=== PATIENT | female | born 1985 | race Caucasian/White ===

== ENCOUNTER 2018-08-14 04:05 | Inpatient (IN) | payer OTHER ==
[2018-08-14 05:20] LABS: BASO % 0.6 % (0-2.0); EOS % 0.3 % (0-4.5); HEMATOCRIT 36.7 % (32.4-45.2); HEMOGLOBIN 12.7 GM/dL (10.7-15.3); LYMPH % 11.4 % (8-40); MCH 30.5 pg (25.7-33.7); MCHC 34.5 g/dl (32.0-36.0); MEAN CELL VOLUME 88.4 fl (80-96); MEAN PLT VOLUME 11.8 fl (7.5-11.1); NEUT % 85.7 % (42.8-82.8); PLATELET COUNT 88 K/MM3 (134-434); RBC 4.15 M/mm3 (3.60-5.2); RDW 14.1 % (11.6-15.6)
[2018-08-14] MEDS ORDERED: FENTANYL/BUPIVACAINE/NS/PF - PCEA - 50 ML DISP.SYRIN EP ONE (05:20)
[2018-08-14] MEDS ORDERED: BUPIVACAINE HCL/PF 0.25% (2.5MG/ML) 10 ML VIAL ONE (05:22)
[2018-08-14] MEDS ORDERED: LIDO 2%/EPI 1:200000 PRESRVFRE (20 ML SDVIAL) ONE ×2 (05:22→07:11)
--- NOTE | 2018-08-14 05:31 | HP ---
Past Medical History - Primary Care Physician PCP:: Marialuisa Ramirez - Admission Chief Complaint: 33yo P1 @ 40.4 with spontaneous contructions, no VB, no LOF, + FM History of Present Illness: 1. 08/01/14 c/s Chorioamnionitis at 8cm baby was 8lb8oz 2. GCT 89 3. GBS neg History Source: Patient, Medical Record Limitations to Obtaining History: No Limitations - Past Medical History Pulmonary: Yes: Asthma (as a child) ...: 2 ...Para: 1 ...Term: 1 ...EDC by Dates: 08/12/18 ...EDC by Sono: 08/10/18 - Past Surgical History Past Surgical History: Yes: Hx Myomectomy: No Hx Transabdominal Cerclage: No - Smoking History Smoking history: Never smoked Have you smoked in the past 12 months: No - Alcohol/Substance Use Hx Alcohol Use: No - Social History Usual Living Arrangement: Yes: With Spouse History of Recent Travel: No Home Medications - Allergies Allergies/Adverse Reactions: Allergies Allergy/AdvReac Type Severity Reaction Status Date / Time No Known Allergies Allergy Verified 08/06/18 11:56 - Home Medications Home Medications: Ambulatory Orders L.acidoph,Paracasei, B.lactis [Probiotic] 1 tab PO DAILY 08/06/18 Tablet 1 mg PO DAILY 08/06/18 Review of Systems - Review of Systems Constitutional: reports: No Symptoms Eyes: reports: No Symptoms HENT: reports: No Symptoms Neck: reports: No Symptoms Cardiovascular: reports: No Symptoms Respiratory: reports: No Symptoms Gastrointestinal: reports: No Symptoms Genitourinary: reports: No Symptoms Breasts: reports: No Symptoms Reported Musculoskeletal: reports: No Symptoms Integumentary: reports: No Symptoms Neurological: reports: No Symptoms Endocrine: reports: No Symptoms Hematology/Lymphatic: reports: No Symptoms Psychiatric: reports: No Symptoms Physical Exam - Maternity Constitutional: Yes: Well Nourished, Other (very uncomfortable with contructions ) Eyes: Yes: WNL, Conjunctiva Clear HENT: Yes: WNL Neck: Yes: WNL, Supple, Trachea Midline Cardiovascular: Yes: WNL, Regular Rate and Rhythm Lungs: Clear to auscultation Breast(s): Yes: WNL - Abdominal Exam/OB Fundal Height: 40 Number of Fetuses: Single Presentation: Vertex Contractions: Yes Regularity: Regular (Q 2min) Intensity: Moderate Monitor Mode: External Heart Rate (range): 160 Heart Rate Location: Midline Category: I Accelerations: Uniform Decelerations: None - Vaginal Exam/OB Vaginal Bleediing: No Speculum Exam: No Dilatation (cm): 6 Effacement (%): 100 Amniotic Membrane Status: Bulging Presentation: Vertex/Position Station: -3 - Physical Exam Musculoskeletal: Yes: WNL Extremities: Yes: WNL Edema: No Integumentary: Yes: WNL Deep Tendon Reflex Grade: Normal +2 ...Motor Strength: WNL Psychiatric: Yes: WNL, Alert, Oriented - Labs Lab Results: Opos/RPR nr/HBAgneg/HIV neg/ RI/GBS neg Assessment/Plan 33yo P1 @ 40.4wks in active labor, very uncomfortable Admit to L&D, IVF, NPO, Labs prior c/section, desires TOLAC she understands risk of the uterine rupture at 1% EFW ~ 8lb, gynecoid pelvis anesthesia contacted for epidural placement
[2018-08-14 05:37] LABS: INR 0.95 (0.83-1.09); PROTHROMBIN TIME (PATIENT) 11.2 SEC (9.7-13.0)
[2018-08-14 05:40] LABS: ACTIVATED PTT 27.9 SECONDS (25.2-36.5)
[2018-08-14 05:45] LABS: ANION GAP 13 MMOL/L (8-16); BLOOD UREA NITROGEN 7 mg/dL (7-18); CALCIUM 7.7 mg/dL (8.5-10.1); CHLORIDE 106 mmol/L (98-107); CO2 19 mmol/L (21-32); CREATININE 0.6 mg/dL (0.55-1.3); GLUCOSE,RANDOM 181 mg/dL (74-106); POTASSIUM 3.4 mmol/L (3.5-5.1); SODIUM 138 mmol/L (136-145)
[2018-08-14] MEDS ORDERED: NALOXONE HCL 0.4 MG/ML VIAL IVPUSH PRN (05:48)
[2018-08-14] MEDS ORDERED: FENTANYL/BUPIVACAINE/NS/PF - PCEA - 50 ML DISP.SYRIN EP SCH (06:00)
[2018-08-14 06:12] VITALS: BMI 28.8
--- NOTE | 2018-08-14 06:12 | PN ---
Progress Note, Labor Vaginal Exam #1 Labor Exam Date: 08/14/18 Labor Exam Time: 05:55 Heart Rate (range): 160' + varriability, category 2 Dilatation: 8cm Effacement (%): 100 Amniotic Membrane Status: Bulging Presentation: Vertex/Position Station: -2 Remarks: As soon as patient is comfortable with anesthesia AROM conducted - thick meconium noted IUPC, FSE and zaman catheters placed Neonatology contacted currently Category 2 FHR, exellent varriability, reassuring Left lateral decubitous position, O2 by face mask will await Neonitalogy presence prior to making decision on mode of delivery
[2018-08-14] MEDS ORDERED: ELECTROLYTE-148 SOLN 1,000 ML IV SCH (06:30)
--- NOTE | 2018-08-14 06:50 | PN ---
Progress Note, Labor Vaginal Exam #2 Labor Exam Date: 08/14/18 Labor Exam Time: 06:50 Heart Rate (range): 165-170 Dilatation: 7-8cm Effacement (%): 100 Amniotic Membrane Status: Ruptured Presentation: Vertex/Position Station: -3 (Thick meconium, no further cervical dialation in 1 hr, FHR Category 2 with some not reassuring features, namely tachycardia, no accelerations Since still remote from delivery will initiate delivery by c/ section Anesthesia and Neonatology aware)
[2018-08-14] MEDS ORDERED: ONDANSETRON 4 MG/2 ML VIAL IVPUSH PRN (07:33)
[2018-08-14] MEDS ORDERED: OXYTOCIN 10 UNITS/ML VIAL ONE (07:57)
[2018-08-14] MEDS ORDERED: ceFAZolin SODIUM 1 GM VIAL ONE (07:57)
[2018-08-14] MEDS ORDERED: diphenhydrAMINE HCL 25 MG CAPSULE (FP) PO PRN (08:51)
[2018-08-14] MEDS ORDERED: BENZOCAINE 28 GM HEMORRHOIDAL OINTMENT PR PRN (08:51)
[2018-08-14] MEDS ORDERED: IBUPROFEN 600 MG TABLET (FP) PO PRN (08:51)
[2018-08-14] MEDS ORDERED: METHYLERGONOVINE MALEATE 0.2 MG/1 ML AMP IM PRN (08:51)
[2018-08-14] MEDS ORDERED: WITCH HAZEL 50% (TUCKS) 40 PAD/JAR PAD TP PRN (08:51)
[2018-08-14] MEDS ORDERED: BENZOCAINE 20% 57 GM BOTTLE TP PRN (08:51)
[2018-08-14] MEDS ORDERED: OXYTOCIN 20 UNITS in 0.9% NS 20 UNIT/1,000 ML INFUS.BAG IV SCH (09:00)
[2018-08-14] MEDS ORDERED: DEXTROSE 5%-LACTATED RINGERS 1,000 ML IV SCH (09:00)
--- NOTE | 2018-08-14 09:00 | PN ---
Delivery - Delivery Section: Repeat Episiotomy/Laceration: None EBL (cc): 400 Delivery, Single - Stages of Labor Date 1st Stage Initiatied: 08/14/18 Time 1st Stage Initiated: 05:30 Date 2nd Stage Initiated: 08/14/18 Date of Delivery: 08/14/18 Time of Delivery: 07:36 Date Placenta Delivered: 08/14/18 Time Placenta Delivered: 07:37 Placenta: Yes: Expressed - Condition of Sound Effects Supervisor/Malt Specifications Control Assistant Present: Yes Name: Zamzam Horton Gender: Female Position: Left, OA - 1 Minute Total Score: 8 5 Minutes Total Score: 9 - [place] Feeding Plan Initial Plan: Exclusive throughout hospitalization Remarks - Remarks Remarks: Attempted TOLAC Thick meconium NRFHR
--- NOTE | 2018-08-14 09:07 | OP ---
Operative Note - Note: Operative Date: 08/14/18 Pre-Operative Diagnosis: 33yo P 1 @ 40.4wks Attempted TOLAC. Thick meconium. Category 2 FHR remote from delivery, no accels, tachicardia, positive varriability Operation: Repeat c/section Findings: 1. Viable female APGARs 8/9 2. Normal Bl Tubes and ovaries Post-Operative Diagnosis: Same as Pre-op Surgeon: Marialuisa Ramirez Grain Scooper: Destini Moser Anesthesiologist/GERMAN INSTRUCTOR: Timur Aguirre Anesthesia: Epidural Estimated Blood Loss (mls): 400 Drains, Volume Out (mls): 100 Fluid Volume Replaced (mls): 1,000 Operative Report Dictated: Yes
[2018-08-14 09:16] LABS: ARTERIAL BLOOD GAS BASE EXCESS -5.5 meq/l (-2-2)
[2018-08-14 09:27] LABS: ARTERIAL BLOOD GAS PCO2 63.1 mmHg (35-45); ARTERIAL BLOOD GAS pH 7.2 (7.35-7.45)
[2018-08-14 09:28] LABS: ARTERIAL BLD GAS O2 SATURATION 15.7 % (90-98.9); ARTERIAL BLOOD GAS PO2 13.4 mmHg (80-100)
[2018-08-14 09:29] LABS: VENOUS PC02 49.4 mmHg (38-52); VENOUS PH 7.27 (7.32-7.42); VENOUS PO2 26.2 mmHg (28-48)
[2018-08-14] MEDS: CEFAZOLIN 1 GM/D5W 1 GM/50 ML BAG IVPB SCH ×2 (10:24→18:13)
[2018-08-14] MEDS ORDERED: IBUPROFEN 800 MG/8 ML IJ IVPB ONE (10:31)
[2018-08-14] MEDS: IBUPROFEN 800 MG/8 ML IJ IVPB PRN ×2 (10:35→16:59)
[2018-08-14] MEDS ORDERED: OXYTOCIN 20 UNITS in 0.9% NS 20 UNIT/1,000 ML INFUS.BAG IV ONE (11:29)
[2018-08-14] MEDS: SIMETHICONE 80 MG TAB.CHEW (FP) PO PRN (21:44)
[2018-08-15] MEDS: IBUPROFEN 800 MG/8 ML IJ IVPB PRN (00:47)
[2018-08-15] MEDS ORDERED: CEFAZOLIN 1 GM/D5W 1 GM/50 ML BAG IVPB ONE (02:00)
[2018-08-15] MEDS: SIMETHICONE 80 MG TAB.CHEW (FP) PO PRN ×5 (06:42→22:06)
[2018-08-15] MEDS: IBUPROFEN 600 MG TABLET (FP) PO PRN ×5 (06:42→22:06)
[2018-08-15] MEDS: ACETAMINOPHEN 325 MG TABLET (FP) PO PRN ×4 (06:43→18:10)
--- NOTE | 2018-08-15 08:12 | PN ---
Progress Note (short form) - Note Progress Note: Anesthesia Post op/pain Pt seen and examined S:Alert and awake comfortable O: Vital Signs Temperature 98.1 F 08/15/18 06:00 Pulse Rate 74 08/15/18 06:00 Respiratory Rate 20 08/15/18 06:00 Blood Pressure 118/70 08/15/18 06:00 O2 Sat by Pulse Oximetry (%) 98 08/14/18 09:25 CBC, BMP 08/14/18 05:05 A/P: c section s/p Doing well post op Continue current care Timur Aguirre MD
[2018-08-15 08:15] LABS: BASO % 0.4 % (0-2.0); EOS % 0.1 % (0-4.5); HEMATOCRIT 33.9 % (32.4-45.2); HEMOGLOBIN 11.6 GM/dL (10.7-15.3); LYMPH % 10.4 % (8-40); MCH 30.6 pg (25.7-33.7); MCHC 34.2 g/dl (32.0-36.0); MEAN CELL VOLUME 89.6 fl (80-96); MONO % 3.2 % (3.8-10.2); NEUT % 85.9 % (42.8-82.8); PLATELET COUNT 83 K/MM3 (134-434); RBC 3.79 M/mm3 (3.60-5.2); RDW 14.2 % (11.6-15.6); WHITE BLOOD COUNT 12.5 K/mm3 (4.0-10.0)
[2018-08-15] MEDS ORDERED: BUPIVACAINE HCL/PF 0.25% (2.5MG/ML) 10 ML VIAL ONE (08:26)
[2018-08-15] MEDS ORDERED: BISACODYL 10 MG SUPP.RECT RC PRN (08:52)
--- NOTE | 2018-08-15 09:45 | PN ---
Post Progress Note - Subjective Subjective: Patient without acute complaints. Reports tolerating oral intake without nausea or vomiting. Ambulating without dizziness. Denies fevers or chills. Pain well controlled with oral pain medication. without difficulty. Passing flatus. Post Day: 1 Type of Delivery: Repeat C/S Vital Signs: Vital Signs Temperature 98.1 F 08/15/18 06:00 Pulse Rate 74 08/15/18 06:00 Respiratory Rate 20 08/15/18 06:00 Blood Pressure 118/70 08/15/18 06:00 O2 Sat by Pulse Oximetry (%) 98 08/14/18 09:25 Breast Exam: Yes: Soft Uterus: Yes: Fundus Firm, Fundus @ umbilicus Incision: Yes: Dressing dry and intact Abdomen/GI: Yes: Abdomen soft Lochia: Yes: Rubra Lochia, amount: Small Extremities: Yes: Calves non-tender Perineum: Yes: Intact Activity: Ambulating - Labs Labs: CBC WBC 12.5 K/mm3 (4.0-10.0) H 08/15/18 07:25 RBC 3.79 M/mm3 (3.60-5.2) 08/15/18 07:25 Hgb 11.6 GM/dL (10.7-15.3) 08/15/18 07:25 Hct 33.9 % (32.4-45.2) 08/15/18 07:25 MCV 89.6 fl (80-96) 08/15/18 07:25 MCH 30.6 pg (25.7-33.7) 08/15/18 07:25 MCHC 34.2 g/dl (32.0-36.0) 08/15/18 07:25 RDW 14.2 % (11.6-15.6) 08/15/18 07:25 Plt Count 83 K/MM3 (134-434) L 08/15/18 07:25 MPV 11.0 fl (7.5-11.1) 08/15/18 07:25 Absolute Neuts (auto) 10.7 K/mm3 (1.5-8.0) H 08/15/18 07:25 Neutrophils % 85.9 % (42.8-82.8) H 08/15/18 07:25 Lymphocytes % 10.4 % (8-40) 08/15/18 07:25 Monocytes % 3.2 % (3.8-10.2) L 08/15/18 07:25 Eosinophils % 0.1 % (0-4.5) 08/15/18 07:25 Basophils % 0.4 % (0-2.0) 08/15/18 07:25 Nucleated RBC % 0 % (0-0) 08/15/18 07:25 Assessment/Plan 33yo P 2 now s/p Repeat c/section due to Category 2 FHR remote from delivery VSS, Afebrile Doing well Gestational Thrombocytopenia will continue routine PP care Encourage ambulation
[2018-08-15] MEDS: oxyCODONE HCL 5 MG TABLET PO PRN (22:07)
--- NOTE | 2018-08-15 22:58 | DS ---
Physical Exam-BINDING FOLDER MACHINE Vital Signs: Vital Signs Temperature 98.1 F 08/15/18 22:00 Pulse Rate 77 08/15/18 22:00 Respiratory Rate 20 08/15/18 22:00 Blood Pressure 122/62 08/15/18 22:00 O2 Sat by Pulse Oximetry (%) 98 08/14/18 09:25 Constitutional: Yes: Well Nourished, No Distress, Calm Eyes: Yes: WNL, Conjunctiva Clear, EOM Intact HENT: Yes: WNL, Atraumatic, Normocephalic Neck: Yes: WNL, Supple, Trachea Midline Cardiovascular: Yes: WNL, Regular Rate and Rhythm Respiratory: Yes: WNL, Regular, CTA Bilaterally Gastrointestinal: Yes: WNL, Normal Bowel Sounds, Soft Pelvis: Yes: WNL External Genitalia: Yes: Normal Internal Exam Deferred: Yes ....Post : Yes: Uterus firm, Uterus non-tender, Slight lochia rubra Breast(s): Yes: WNL Musculoskeletal: Yes: WNL Extremities: Yes: WNL Edema: No Integumentary: Yes: WNL Wound/Incision: Yes: Clean/Dry, Well Approximated Neurological: Yes: WNL, Alert, Oriented ...Motor Strength: WNL Psychiatric: Yes: WNL, Alert, Oriented Labs: CBC, BMP 08/15/18 07:25 08/14/18 05:05 Delivery - Delivery Section: Repeat Type of Anesthesia: Epidural Episiotomy/Laceration: None EBL (cc): 400 Delivery, Single - Stages of Labor Date 1st Stage Initiatied: 08/14/18 Time 1st Stage Initiated: 05:30 Date 2nd Stage Initiated: 08/14/18 Date of Delivery: 08/14/18 Time of Delivery: 07:36 Time Placenta Delivered: 07:37 Placenta: Yes: Expressed - Condition of Group Product Manager/Graduate Recruiter Present: Yes Name: Zamzam Horton Infant Gender: Female Weight: 8 lb 14 oz Position: Left, OA Total Hours ROM (Hrs/Mins): 1hr/41mins - 1 Minute Total Score: 8 5 Minutes Total Score: 9 - [place] Feeding Plan Initial Plan: Exclusive throughout hospitalization Remarks - Remarks Remarks: Attempted TOLAC Thick meconium NRFHR Discharge Summary Reason For Visit: LABOR ADMIT Procedures: Principal: Repeat LST c/section Hospital Course: Stable Condition: Good - Instructions Diet, Activity, Other Instructions: Physical activity Resume your normal everyday activity as tolerated no heavy lifting or exercise until seen by your surgeon. You may walk unlimited jane of and climb stairs. You may resume driving the car when you feel safe and comfortable behind the wheel. No sexual activity as instructed. Wound care If you have a bandage, leave it on, and keep dry for 48-72 hours. After that time discard the outer bandage. If they are tapes on the skin under the out of bandage leave them in place. They will peel off in the next 7 to 10 days. Do Not Peel them off. You may shower the day after surgery. If there are tapes present on the skin, you may shower over them. Diet There are no dietary restrictions. Eat healthy, high-fiber foods. Drink 6 to 8 glasses of liquid each day. This will assist in keeping your bowels are regular. Pain management You may take Tylenol or acetaminophen or Ibuprofen (for example, Motrin, Advil etc.) from my pain prescription medication is ordered should be taken as prescribed for moderate to severe pain. Call MD for any of the following: Severe pain not relieved by medication Fever of 101 or higher Excessive bleeding or drainage on dressing Inability to urinate Referrals: Star Helm MD [Staff Physician] - Disposition: HOME - Home Medications Comprehensive Discharge Medication List: Ambulatory Orders Bacillus Coagulans [Probiotic] 1 each PO DAILY 08/14/18 Pnv No.95/Ferrous Fum/Folic AC [ Vitamin Tablet] 1 each PO DAILY
[2018-08-16] MEDS: SIMETHICONE 80 MG TAB.CHEW (FP) PO PRN ×5 (05:44→22:08)
[2018-08-16] MEDS: IBUPROFEN 600 MG TABLET (FP) PO PRN ×5 (05:45→22:10)
[2018-08-16] MEDS: oxyCODONE HCL 5 MG TABLET PO PRN ×3 (05:45→22:09)
--- NOTE | 2018-08-16 09:08 | PN ---
Post Progress Note Post Day: 2 Type of Delivery: Repeat C/S Vital Signs: Vital Signs Temperature 98.1 F 08/15/18 22:00 Pulse Rate 77 08/15/18 22:00 Respiratory Rate 20 08/15/18 22:00 Blood Pressure 122/62 08/15/18 22:00 O2 Sat by Pulse Oximetry (%) 98 08/14/18 09:25 - Labs Labs: CBC WBC 12.5 K/mm3 (4.0-10.0) H 08/15/18 07:25 RBC 3.79 M/mm3 (3.60-5.2) 08/15/18 07:25 Hgb 11.6 GM/dL (10.7-15.3) 08/15/18 07:25 Hct 33.9 % (32.4-45.2) 08/15/18 07:25 MCV 89.6 fl (80-96) 08/15/18 07:25 MCH 30.6 pg (25.7-33.7) 08/15/18 07:25 MCHC 34.2 g/dl (32.0-36.0) 08/15/18 07:25 RDW 14.2 % (11.6-15.6) 08/15/18 07:25 Plt Count 83 K/MM3 (134-434) L 08/15/18 07:25 MPV 11.0 fl (7.5-11.1) 08/15/18 07:25 Absolute Neuts (auto) 10.7 K/mm3 (1.5-8.0) H 08/15/18 07:25 Neutrophils % 85.9 % (42.8-82.8) H 08/15/18 07:25 Lymphocytes % 10.4 % (8-40) 08/15/18 07:25 Monocytes % 3.2 % (3.8-10.2) L 08/15/18 07:25 Eosinophils % 0.1 % (0-4.5) 08/15/18 07:25 Basophils % 0.4 % (0-2.0) 08/15/18 07:25 Nucleated RBC % 0 % (0-0) 08/15/18 07:25
[2018-08-16] MEDS: ACETAMINOPHEN 325 MG TABLET (FP) PO PRN ×3 (09:45→17:01)
[2018-08-16] MEDS: SENNOSIDES/DOCUSATE COMBO (SENNA PLUS) TABLET (UD) PO PRN (22:09)
[2018-08-17] MEDS: oxyCODONE HCL 5 MG TABLET PO PRN (01:56)
[2018-08-17] MEDS: SIMETHICONE 80 MG TAB.CHEW (FP) PO PRN ×6 (01:56→22:16)
[2018-08-17] MEDS: IBUPROFEN 600 MG TABLET (FP) PO PRN ×6 (01:57→22:18)
[2018-08-17] MEDS: ACETAMINOPHEN 325 MG TABLET (FP) PO PRN ×5 (06:03→22:17)
[2018-08-17 07:23] LABS: BASO % 0.7 % (0-2.0); EOS % 2.7 % (0-4.5); HEMATOCRIT 31.9 % (32.4-45.2); HEMOGLOBIN 11.1 GM/dL (10.7-15.3); LYMPH % 29.6 % (8-40); MCH 31.1 pg (25.7-33.7); MCHC 34.6 g/dl (32.0-36.0); MEAN CELL VOLUME 89.9 fl (80-96); MEAN PLT VOLUME 10.7 fl (7.5-11.1); MONO % 6.2 % (3.8-10.2); NEUT % 60.8 % (42.8-82.8); PLATELET COUNT 104 K/MM3 (134-434); RBC 3.55 M/mm3 (3.60-5.2); RDW 14.4 % (11.6-15.6); WHITE BLOOD COUNT 5.9 K/mm3 (4.0-10.0)
--- NOTE | 2018-08-17 17:52 | PN ---
Post Progress Note - Subjective Subjective: Patient without acute complaints. Reports tolerating oral intake without nausea or vomiting. Ambulating without dizziness. Denies fevers or chills. Pain well controlled with oral pain medication. Pumping without issue, baby not latching yet. Post Day: 3 Type of Delivery: Repeat C/S Vital Signs: Vital Signs Temperature 98.4 F 08/17/18 07:40 Pulse Rate 56 L 08/17/18 07:40 Respiratory Rate 18 08/17/18 07:40 Blood Pressure 135/76 08/17/18 07:40 O2 Sat by Pulse Oximetry (%) 98 08/14/18 09:25 Breast Exam: Yes: Soft Uterus: Yes: Fundus Firm, Fundus below umbilicus, Non-tender Incision: Yes: Sutures intact Abdomen/GI: Yes: Abdomen soft, Passing flatus, Tolerating PO Lochia: Yes: Rubra Lochia, amount: Small Extremities: Yes: Calves non-tender Perineum: Yes: Intact Activity: Ambulating - Labs Labs: CBC WBC 5.9 K/mm3 (4.0-10.0) 08/17/18 07:00 RBC 3.55 M/mm3 (3.60-5.2) L 08/17/18 07:00 Hgb 11.1 GM/dL (10.7-15.3) 08/17/18 07:00 Hct 31.9 % (32.4-45.2) L 08/17/18 07:00 MCV 89.9 fl (80-96) 08/17/18 07:00 MCH 31.1 pg (25.7-33.7) 08/17/18 07:00 MCHC 34.6 g/dl (32.0-36.0) 08/17/18 07:00 RDW 14.4 % (11.6-15.6) 08/17/18 07:00 Plt Count 104 K/MM3 (134-434) L D 08/17/18 07:00 MPV 10.7 fl (7.5-11.1) 08/17/18 07:00 Absolute Neuts (auto) 3.6 K/mm3 (1.5-8.0) 08/17/18 07:00 Neutrophils % 60.8 % (42.8-82.8) D 08/17/18 07:00 Lymphocytes % 29.6 % (8-40) D 08/17/18 07:00 Monocytes % 6.2 % (3.8-10.2) D 08/17/18 07:00 Eosinophils % 2.7 % (0-4.5) D 08/17/18 07:00 Basophils % 0.7 % (0-2.0) 08/17/18 07:00 Nucleated RBC % 0 % (0-0) 08/17/18 07:00 Assessment/Plan 33yo P2 s/p repeat LT C/S, doing well stable, afebrile. The pt is asymptomatic for s/sxs of anemia. care instructions reviewed. Continue routine postop care. Ambulation encouraged.
[2018-08-17] MEDS: SENNOSIDES/DOCUSATE COMBO (SENNA PLUS) TABLET (UD) PO PRN (22:16)
[2018-08-18] MEDS: SIMETHICONE 80 MG TAB.CHEW (FP) PO PRN ×3 (02:21→11:52)
[2018-08-18] MEDS: IBUPROFEN 600 MG TABLET (FP) PO PRN ×3 (02:22→11:52)
[2018-08-18] MEDS: ACETAMINOPHEN 325 MG TABLET (FP) PO PRN ×3 (02:24→11:54)
[2018-08-18 10:59] VITALS: BP 128/63; PULSE 53; TEMP 98
--- NOTE | 2018-08-29 14:25 | PATH ---
Surgical Pathology Report Patient Name: ALEXIA MCKENZIE [facility]. Rec. 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 Specimen(s) Received PLACENTA Clinical History , 40.4 weeks Final Diagnosis PLACENTA, SECTION: 502 G THIRD TRIMESTER PLACENTA WITH TRIVASCULAR UMBILICAL CORD AND PLACENTAL MEMBRANES WITH MECONIUM LADEN MACROPHAGES. Electronically Signed Shaniqua Jones M.D. Gross Description The specimen is received fresh labeled placenta and is a 502 gram, 16.0 x 16.0 x 3.2 cm. placenta with attached membranes and umbilical cord. The attached membranes are schneider green, meconium stained, translucent with focal opacities and insert marginally. The umbilical cord measures 8.5 cm. in length and averages 1.3 cm. in diameter. The cord inserts centrally. No true knots or strictures are identified. Cut surface of the umbilical cord reveals 3 vessels. The surface is keller green, meconium stained with minimal fibrin deposition and appropriate caliber vessels. The maternal surface is red-brown with focal defects. Sectioning reveals red-brown, spongy parenchyma. No lesions are identified. Accountant Systems sections are submitted in three cassettes as follows: 1- membrane rolls and umbilical cord; 2-3- full thickness sections of placenta/. /08/26/2018 [facility]08/26/2018
== END 2018-08-18 18:30 | disposition home or self-care (01) | DRG 787 ==
LOC: JDEL 04:05 → JLDR 04:06 → J3W 14:28
PROVIDERS: ADMIT Obstetrics & Gynecology; ATTEND Obstetrics & Gynecology
PROC: 10D00Z1 Extraction of Products of Conception, Low, Open Approach (ICD-10-PCS; principal; 2018-08-14)
DX: O34.211 Maternal care for low transverse scar from previous cesarean delivery (principal); O99.113 Other diseases of the blood and blood-forming organs and certain disorders involving the immune mechanism complicating pregnancy, third trimester; D69.42 Congenital and hereditary thrombocytopenia purpura; O48.0 Post-term pregnancy; O77.0 Labor and delivery complicated by meconium in amniotic fluid; O75.89 Other specified complications of labor and delivery; J45.909 Unspecified asthma, uncomplicated; Z3A.40 40 weeks gestation of pregnancy; Z37.0 Single live birth
CPT/HCPCS: 36415; 36600; 80048; 82803; 85025; 85610; 85730; 86593; 86850; 86900; 86901; 88307-TC

== ENCOUNTER 2023-11-23 05:50 | Inpatient (IN) | payer OTHER ==
[2023-11-23] MEDS ORDERED: CITRIC ACID/SODIUM CITRATE 30 ML UNIT-DOSE CUP PO ONE (06:05)
[2023-11-23] MEDS: ELECTROLYTE-148 SOLN 500 ML IV SCH ×2 (06:15→06:30)
[2023-11-23 06:32] VITALS: BMI 34.8
[2023-11-23] MEDS: CITRIC ACID/SODIUM CITRATE 30 ML UNIT-DOSE CUP PO ONE (07:05)
[2023-11-23] MEDS ORDERED: METOCLOPRAMIDE HCL INJECTION 10 MG/2 ML VIAL ONE (07:54)
[2023-11-23] MEDS ORDERED: KETOROLAC TROMETHAMINE 30 MG/1 ML VIAL ONE (07:54)
[2023-11-23] MEDS ORDERED: ceFAZolin SODIUM 1 GM VIAL ONE (07:54)
[2023-11-23] MEDS ORDERED: PHENYLEPHRINE HCL 10 MG/1 ML SINGLE DOSE VIAL ONE (07:54)
[2023-11-23] MEDS ORDERED: ONDANSETRON 4 MG/2 ML VIAL ONE (07:54)
[2023-11-23] MEDS ORDERED: DEXAMETHASONE SOD PHOSPHATE 4 MG/1 ML VIAL ONE (07:54)
[2023-11-23] MEDS ORDERED: OXYTOCIN 10 UNITS/ML VIAL ONE (07:54)
[2023-11-23] MEDS ORDERED: FENTANYL CITRATE/PF 50 MCG/ML VIAL ONE (07:59)
[2023-11-23] MEDS ORDERED: ePHEDrine SULFATE 50 MG/1 ML AMPULE ONE (07:59)
[2023-11-23] MEDS ORDERED: morphine SULFATE/PF 1 MG/2 ML (2cc Syringe - QUVA) ONE (08:00)
[2023-11-23] MEDS ORDERED: SODIUM CHLORIDE 0.9% P/F 10 ML VIAL IJ ONE (08:27)
[2023-11-23 09:15] LABS: CORD HCO3 23.2 mmHg (20-29); CORD PCO2 62.5 mmHg (30-78); CORD pH 7.187 (7.14-7.44)
[2023-11-23 09:19] LABS: CORD HCO3 22.8 mmHg (20-29); CORD PCO2 55.8 mmHg (30-78); CORD pH 7.229 (7.14-7.44)
[2023-11-23] MEDS ORDERED: ONDANSETRON 4 MG/2 ML VIAL IVPB PRN (09:38)
[2023-11-23] MEDS ORDERED: OXYTOCIN 20 UNITS in 0.9% NS 20 UNIT/1,000 ML INFUS.BAG IV ONE (10:41)
[2023-11-23] MEDS: OXYTOCIN 20 UNITS in 0.9% NS 20 UNIT/1,000 ML INFUS.BAG IV SCH (10:52)
[2023-11-23] MEDS: ACETAMINOPHEN 1000 MG/100 ML BAG IVPB SCH (12:01)
[2023-11-23 12:18] VITALS: RESP 18
[2023-11-23] MEDS: CEFAZOLIN SODIUM 2 GM in DEXTROSE 5%-WATER 100 ML IVPB SCH ×2 (13:45→23:00)
[2023-11-23] MEDS: IBUPROFEN 800 MG/8 ML IJ IVPB PRN (14:27)
[2023-11-23] MEDS: SIMETHICONE 80 MG TAB.CHEW (FP) PO PRN (21:44)
[2023-11-23] MEDS: SENNOSIDES/DOCUSATE COMBO (SENNA PLUS) TABLET (UD) PO SCH (23:13)
[2023-11-24 08:12] LABS: BASO % 0.8 % (0-2.0); HEMATOCRIT 37.5 % (32.4-45.2); HEMOGLOBIN 12.5 GM/dL (10.7-15.3); LYMPH % 21.9 % (8-40); MCH 29.7 pg (25.7-33.7); MCHC 33.3 g/dl (32.0-36.0); MEAN CELL VOLUME 89.1 fl (80-96); MEAN PLT VOLUME 10.6 fl (7.5-11.1); MONO % 5.9 % (3.8-10.2); NEUT % 70.4 % (42.8-82.8); PLATELET COUNT 109 10^3/uL (134-434); RBC 4.21 M/mm3 (3.60-5.2); RDW 14.8 % (11.6-15.6); WHITE BLOOD COUNT 12.2 K/mm3 (4.0-10.0)
[2023-11-24] MEDS: oxyCODONE HCL 5 MG TABLET PO PRN (09:02)
[2023-11-24] MEDS: PRENATAL VITAMINS W/ FOLIC ACID TABLET (FP) PO SCH (09:02)
[2023-11-24] MEDS: ENOXAPARIN NA (PORCINE) 40 MG/0.4 ML DISP.SYRIN SQ SCH (09:02)
[2023-11-24] MEDS ORDERED: IBUPROFEN 800 MG/8 ML IJ IVPB PRN (10:20)
[2023-11-24] MEDS: ACETAMINOPHEN 325 MG TABLET (FP) PO SCH (12:37)
[2023-11-24] MEDS: IBUPROFEN 600 MG TABLET (FP) PO PRN (14:20)
[2023-11-24] MEDS: BISACODYL 10 MG SUPP.RECT RC PRN (17:46)
[2023-11-25 08:19] LABS: HEMATOCRIT 37.1 % (32.4-45.2); HEMOGLOBIN 12.5 GM/dL (10.7-15.3); MCH 29.9 pg (25.7-33.7); MCHC 33.7 g/dl (32.0-36.0); MEAN CELL VOLUME 88.6 fl (80-96); MEAN PLT VOLUME 10.4 fl (7.5-11.1); PLATELET COUNT 131 10^3/uL (134-434); RBC 4.18 M/mm3 (3.60-5.2); RDW 15.2 % (11.6-15.6)
[2023-11-25] MEDS: BACITRACIN ZINC 15 GM TUBE TOPICAL OINTMENT TP SCH (22:00)
[2023-11-26] MEDS: oxyCODONE HCL 5 MG TABLET PO PRN (16:37)
[2023-11-27 10:12] VITALS: BP 115/69; PULSE 65; TEMP 97.9
== END 2023-11-27 16:40 | disposition home or self-care (01) | DRG 788 ==
LOC: JLDR 05:50 → J3W 11:55
PROVIDERS: ADMIT Obstetrics & Gynecology; ATTEND Obstetrics & Gynecology
PROC: 10D00Z1 Extraction of Products of Conception, Low, Open Approach (ICD-10-PCS; principal; 2023-11-23)
DX: O34.211 Maternal care for low transverse scar from previous cesarean delivery (principal); Z3A.39 39 weeks gestation of pregnancy; Z37.0 Single live birth
CPT/HCPCS: 36415; 36600; 59409; 82803; 85025; 85027; 86850; 86900; 86901; 88307-TC; 94010; J0131